=== PATIENT | male | born 1945 | race Caucasian/White ===

== ENCOUNTER 2019-05-07 16:16 | Outpatient (CLI) | payer MEDICARE, OTHER ==
--- NOTE | 2019-05-07 16:45 | XRAY Report ---
Reason: R FOOT PAIN @ 5TH MTP Procedure Date: 05/07/2019 Accession Number: [id number] / [id number] Procedure: XR - Foot 3 View RT CPT Code: Final Report FULL RESULT: EXAM: RIGHT FOOT RADIOGRAPHY EXAM DATE: 05/07/2019 04:26 PM. CLINICAL HISTORY: R FOOT PAIN @ 5TH MTP. COMPARISON: None. TECHNIQUE: 3 views. FINDINGS: Bones: Achilles tendon heel spur. No fractures or bone lesions. Joints: Osteophyte talonavicular joint. Osteophyte metatarsal tarsal joint. First metatarsophalangeal joint space narrowing. Loose body or accessory ossicle adjacent to first metatarsal tarsal joint laterally No subluxations. Soft Tissues: Soft tissue swelling. IMPRESSION: Degenerative changes. RADIA
== END 2019-05-07 16:17 | disposition home or self-care (01) ==
LOC: DI 16:16
PROVIDERS: ATTEND Physician Assistant
DX: M19.071 Primary osteoarthritis, right ankle and foot (principal)

== ENCOUNTER 2023-12-09 08:47 | Outpatient (CLI) | payer MEDICARE, OTHER | END 2023-12-09 08:48 | disposition home or self-care (01) | LOC: RT 08:47 | PROVIDERS: ATTEND Family Medicine | DX: I49.9 Cardiac arrhythmia, unspecified (principal) | CPT/HCPCS: 93005 ==